=== PATIENT | male | born 1955 | race Caucasian/White ===

== ENCOUNTER 2016-10-31 14:12 | Emergency (ER) | payer OTHER ==
[~2016-10-31 14:12] MED LIST: COLACE100 MG PO; HYCET1 ML PO
--- NOTE | 2016-10-31 16:02 | DIAGNOSTIC IMAGING REPORT ---
PROCEDURE: CT ABDOMEN/PELVIS W/O CONTRAST INDICATION: Left flank pain, initial encounter TECHNIQUE: Noncontrast axial images were obtained of the entire abdomen and pelvis with sagittal and coronal reformations. COMPARISON: CT abdomen/pelvis 11/29/2015. FINDINGS: ABDOMEN: 6 x 2.5 mm left UVJ calculus with mild left hydroureteronephrosis and perinephric edema. Bilateral punctate nonobstructing renal calculi. Lung base are clear. Heart size is normal. Gallstones, largest 1 cm. 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 Liver, spleen and adrenal glands are normal. Mild atherosclerosis. PELVIS: Normal appendix.. Mildly enlarged prostate, 4.5 cm. No pelvic mass, inflammatory changes or free fluid. Mild degenerative changes of the spine. IMPRESSION: 1. 6 x 2.5 mm left UVJ calculus with mild left hydroureteronephrosis 2. Bilateral punctate nonobstructing renal calculi 3. 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 This may represent residual or recurrent mass versus pseudocyst. 4. Cholelithiasis 5. Results discussed with Jaida Browne All CT scans at this facility use dose modulation, iterative reconstruction, and/or weight-based dosing when appropriate to reduce radiation dose to as low as reasonably achievable.
--- NOTE | 2016-10-31 16:23 | ED ORDER SUMMARY ---
..... Patient: REINA ROSEN OrderSheet [facility] VisitID: [id number] [place] [address] 61y, M Registration Date/Time: 10/31/2016 ORDER SHEET Weight: 68.0 kg (stated) Allergies: NKDA GENERAL ORDERS: CT Abd/Pel wo Cont Urgent (14:36 10/31/2016 HBivens A.R.N.P.) (Ack 14:37 KHoerner) (15:03 EHassan R.N.) CBC w Diff Urgent (14:36 10/31/2016 HBivens A.R.N.P.) (Ack 14:37 KHoerner) (15:02 EHassan R.N.) CMP Urgent (14:36 10/31/2016 HBivens A.R.N.P.) (Ack 14:37 KHoerner) (15:02 EHassan R.N.) UA-Culture if indicated Urgent (14:36 10/31/2016 HBivens A.R.N.P.) (Ack 14:37 KHoerner) (14:45 Astrid R.N.) MEDICATION ORDERS: Hydrocodone-APAP PO 5/325 mg (NOW, HIGH ALERT MEDICATION) (16:33 10/31/2016 EHassan R.N. verbal order read back to HBivens A.R.N.P.) (16:37 EHassan R.N.) IV FLUIDS: IV NS : initial bolus 1000 mL (1000 mL/hr), then none - (NOW) (14:36 10/31/2016 HBivens A.R.N.P.) (Ack 14:45 Astrid R.N.) (15:13 EHassan R.N.) Zofran IV 4 mg (NOW) (14:36 10/31/2016 HBivens A.R.N.P.) (Ack 14:45 Astrid R.N.) (15:13 EHassan R.N.) Toradol IV 30 mg (NOW) (14:36 10/31/2016 HBivens A.R.N.P.) (Ack 14:45 Astrid R.N.) (15:13 Lizzeth Campbell.N.) IV Saline Lock (14:36 10/31/2016 Rambo A.R.N.P.) (Ack 14:45 Astrid Redman) (15:03 Lizzeth Campbell.N.) ORDER SHEET NOTES: [Electronically signed by Jaida BrowneNTerellPTerell (17:19 10/31/2016)] [Electronically signed by Ladi Church R.N. (22:40 10/31/2016)] [Electronically locked/signed by Ladi Church R.N. (22:40 10/31/2016)]
--- NOTE | 2016-10-31 16:23 | ED NURSING NOTES ---
Clinical Report - Nurses [facility] [place] [address] 10/31/2016 14:12 Patient: REINA ROSEN TRIAGE Triage time 14:34. Acuity: LEVEL 3. Chief Complaint: ABDOMINAL PAIN, NAUSEA and VOMITING. Alert. ANNIE COMA SCORE: [place] Coma Scale: 15- eyes open spontaneously (4); best verbal response- oriented x 4 (5); best motor response- obeys commands (6). --14:40 Savannah Michelle R.N. 14:34 10/31/16. BP: 134/80. HR: 88. RR: 18. O2 saturation: 98% on room air. Temp: 98.1 F (oral). Pain level now: 07/28. --14:40 Savannah Michelle R.N. Weight: 68 kg stated. Height/Length: 68 inches Per Patient. BMI: 22.8. --14:37 Savannah Michelle R.N. Medications None. --14:35 Savannah Michelle R.N. Medication/allergy information source: the patient's family. --14:40 Savannah Michelle R.N. Allergies NKDA. --14:35 Savannah Michelle R.N. History Arrived by private vehicle. Historian: patient and family. Accompanied by family. Primary physician (Nathan). Describes the quality as "pain". Relates the location as in the left flank area. SOCIAL HX: Never smoker. No alcohol use or drug use. FALL RISK ASSESSMENT: Fall risk assessment completed. No fall risk identified. FUNCTIONAL ASSESSMENT: Functional assessment performed: independent with the activities of daily living; deafness present. LEARNING NEEDS ASSESSMENT: (pt and are deaf). --14:40 Savannah Michelle R.N. PROBLEMS: Urinary Calculi. Cholelithiasis. Ureterolithiasis. Nephrolithiasis. --14:35 Savannah Michelle R.N. ADDITIONAL SURGERIES: Pancreatic cyst. --14:35 Miguel Angel, Savannah, R.N. Assessment GENERAL / NEURO / PSYCH: The patient is awake and alert, is oriented and cooperative and appears uncomfortable. He has good eye contact. RESPIRATORY: Respirations not labored. SKIN: Skin is warm and dry. --14:40 Savannah Michelle R.N. Interventions ID band on patient. To treatment room. --14:40 Savannah Michelle R.N. PHYSICAL ASSESSMENT 14:44 10/31/16. Ambulatory to room. Patient gowned. GENERAL / NEURO / PSYCH: Alert. Oriented X 4. Appears in no acute distress. RESPIRATORY: Respirations not labored. SKIN: Skin is warm and dry. --14:44 Savannah Michelle R.N. NURSING PROGRESS NOTES 14:44 10/31/16. Patient gowned. Head of bed elevated. Call light placed in reach. Side rails up x 1. Bed placed in lowest position. Brakes of bed on. --14:44 Savannah Michelle R.N. 14:45 10/31/16. :patient confirmed. Clean catch urine collected; sample sent to lab. Specimen labeled in the presence of the patient. --14:45 Savannah Michelle R.N. 15:03 10/31/2016 Site #1 started via IV in the right antecubital space with an 20g angiocath; one attempt. Blood drawn: rainbow set. Labeled in the presence of the patient and sent to the lab. --15:03 Ladi Church R.N. 15:08 10/31/2016 Toradol IVP 30 mg given over 30 second(s) via site #1. Allergies verified and confirmed 5 rights. IV patency established. IV site checked: no pain, redness, or swelling. IV flushed thoroughly pre- and post-medication administration. IVP given by RN. --15:13 Ladi Church R.N. 15:13 10/31/2016 Started bag #1 1000 mL IV Fluids IV NS (Saline); at 1000 mL/hr over 1 hour(s) via site #1 via IV pump. Allergies verified and confirmed 5 rights. IV patency established. IV site checked: no pain, redness, or swelling. IV flushed thoroughly pre- and post-medication administration. Completed per protocol. --15:13 Ladi Church R.N. 15:13 10/31/2016 Zofran (Ondansetron HCl) IVP 4 mg given over 2 minute(s) via site #1. Allergies verified and confirmed 5 rights. IV patency established. IV site checked: no pain, redness, or swelling. IV flushed thoroughly pre- and post-medication administration. IVP given by RN. --15:13 Ladi Church R.N. Patient returned from CT. (1513 PM). --15:13 Ladi Church R.N. 16:02 10/31/16. BP: 128/73 (regular adult cuff) taken on the left arm, via an automated monitor, while lying. HR: 91. RR: 15. O2 saturation: 100%. Pain level now: 09/25. --16:02 Ladi Church R.N. Reassurance given. Reassessment after fluids administered. He is calm and resting quietly. Overall patient status is the same- he states feels the same. GI / : The patient reports abdominal pain. Denies nausea, diarrhea or vomiting. Call light placed in reach. --16:02 Ladi Church R.N. 16:37 10/31/2016 Hydrocodone-APAP (Hydrocodone-Acetaminophen) PO 5/325 mg Tablets 1 tab given. Allergies verified, confirmed 5 rights and sedative warning given to the patient and patient's family. --16:37 Ladi Church R.N. DISPOSITION / DISCHARGE 16:46 10/31/2016 Toradol IVP Response: no adverse reaction pain is improving. Symptoms have improved the patient feels better. --17:11 Ladi Church R.N. 16:51 10/31/2016 Site #1 removed. Catheter intact. Manual pressure, pressure dressing, bandaid and bandage applied. --16:51 Ladi Church R.N. Condition at departure: improved and stable. The goals identified in the patient's plan of care were met. No learning barriers present. Discharge instructions provided and reviewed with the patient and spouse. Reviewed warnings (stone and straining all urine, as well as folllow-up with old surgeon due to new findings of cyst). Reviewed medication(s) side effects, precautions, dosing and course information. Prescription(s) given to the patient. Patient and spouse verbalized understanding. Written instructions provided in [place] (pt's are both deaf but able to communicate via pen and paper). No treatment instructions or referrals given to the patient. The patient was discharged by the nurse practitioner. He was discharged home and accompanied by spouse and parent. He left the Emergency Department ambulatory and via private vehicle. Patient driving. FALL RISK ASSESSMENT: Fall risk assessment completed. No fall risk identified. --17:10 Ladi Church R.N. 16:30 10/31/16. BP: 125/84. HR: 74. RR: 15. O2 saturation: 100% on room air. Temp: 98.3 F (oral). Pain level now: 12/25. --17:10 Ladi Church R.N. 17:00 10/31/2016 IV Fluids IV NS Discontinued: bag #1 infused upon discharge. Total amount infused: 1000 mL. IV patency established. IV site checked: no pain, redness, or swelling. IV flushed thoroughly. --17:11 Ladi Church R.N. 17:01 10/31/2016 Zofran IVP Response: no adverse reaction pain is improving. Symptoms have improved the patient feels better. --17:11 Ladi Church R.N. 17:07 10/31/2016 Hydrocodone-APAP PO Response: no adverse reaction pain is improving. Symptoms have improved the patient feels better. --17:12 Ladi Church R.N. Departure time: 1715 PM. --17:12 Ladi Church R.N. Locked/Released at 10/31/2016 22:40 by Ladi Church R.N.
--- NOTE | 2016-10-31 16:23 | ED ORDER SUMMARY ---
..... Patient: REINA ROSEN OrderSheet [facility] VisitID: [id number] [place] [address] 61y, M Registration Date/Time: 10/31/2016 ORDER SHEET Weight: 68.0 kg (stated) Allergies: NKDA GENERAL ORDERS: CT Abd/Pel wo Cont Urgent (14:36 10/31/2016 HBivens A.R.N.P.) (Ack 14:37 KHoerner) (15:03 EHassan R.N.) CBC w Diff Urgent (14:36 10/31/2016 HBivens A.R.N.P.) (Ack 14:37 KHoerner) (15:02 EHassan R.N.) CMP Urgent (14:36 10/31/2016 HBivens A.R.N.P.) (Ack 14:37 KHoerner) (15:02 EHassan R.N.) UA-Culture if indicated Urgent (14:36 10/31/2016 HBivens A.R.N.P.) (Ack 14:37 KHoerner) (14:45 Astrid R.N.) MEDICATION ORDERS: Hydrocodone-APAP PO 5/325 mg (NOW, HIGH ALERT MEDICATION) (16:33 10/31/2016 EHassan R.N. verbal order read back to HBivens A.R.N.P.) (16:37 EHassan R.N.) IV FLUIDS: IV NS : initial bolus 1000 mL (1000 mL/hr), then none - (NOW) (14:36 10/31/2016 HBivens A.R.N.P.) (Ack 14:45 Astrid R.N.) (15:13 EHassan R.N.) Zofran IV 4 mg (NOW) (14:36 10/31/2016 HBivens A.R.N.P.) (Ack 14:45 Astrid R.N.) (15:13 EHassan R.N.) Toradol IV 30 mg (NOW) (14:36 10/31/2016 HBivens A.R.N.P.) (Ack 14:45 Astrid R.N.) (15:13 Lizzeth Campbell.N.) IV Saline Lock (14:36 10/31/2016 Rambo A.R.N.P.) (Ack 14:45 Astrid Redman) (15:03 Lizzeth Campbell.N.) ORDER SHEET NOTES: [Electronically signed by Jaida BrowneNTerellPTerell (17:19 10/31/2016)] [Electronically signed by Ladi Church R.N. (22:40 10/31/2016)] [Electronically locked/signed by Ladi Church R.N. (22:40 10/31/2016)]
--- NOTE | 2016-10-31 16:23 | ED CLINICAL REPORT ---
Clinical Report - Physicians/Mid Levels [facility] [address] [place] [address] 10/31/2016 14:12 Patient: REINA ROSEN Time Seen: 1424; upon arrival, initial patient contact, initial documentation, patient care assumed. Arrived- By private vehicle. Historian- patient and spouse. HISTORY OF PRESENT ILLNESS Chief Complaint: ABDOMINAL PAIN and FLANK PAIN. This started yesterday and is still present. It was abrupt in onset. At its maximum, severity described as severe. When seen in the E.D., severity described as moderate. It is described as "pain" and it is described as located in the left abdomen and left lower quadrant and the left flank and radiating to the left lower quadrant of the abdomen. The patient has had nausea, loss of appetite and vomiting. No diarrhea. No additional abdominal pain. No recent travel. Similar symptoms previously: Once. ( when he had kidney stone last year). Recent medical care: Not recently seen/assessed. REVIEW OF SYSTEMS No constipation, black stools, hematemesis, difficulty with urination or pain with urination. No urinary frequency, bloody stools, fever, chest pain or difficulty breathing. Last bowel movement: today. The patient has had chills. All systems otherwise negative, except as recorded above. PAST HISTORY See nurses notes. PROBLEMS: Urinary Calculi. Cholelithiasis. Ureterolithiasis. Nephrolithiasis. --14:35 Savannah Michelle R.N. ADDITIONAL SURGERIES: Pancreatic cyst. --14:35 Savannah Michelle R.N. Hearing loss (Deaf). SOCIAL HISTORY Never smoker. No alcohol use or drug use. No recent travel. Is a local resident. He lives with spouse. FAMILY HISTORY Negative. ADDITIONAL NOTES The nursing notes have been reviewed with agreement regarding the chief complaint, HPI, ROS, PMH and patient medications and allergies. PHYSICAL EXAM Appearance: Alert. Oriented X3. No acute distress. Eyes: Pupils equal, round and reactive to light. Eyes normal inspection. Neck: Normal inspection. Neck supple. CVS: Normal heart rate and rhythm. Heart sounds normal. Pulses normal. Respiratory: No respiratory distress. Breath sounds normal. Chest nontender. Abdomen: Soft and nontender. Back: Normal inspection. Skin: Skin warm and dry. Normal skin color. No rash. Normal skin turgor. Extremities: Extremities exhibit normal ROM. No lower extremity edema. Neuro: Oriented X 3. No motor deficit. No sensory deficit. LABS, X-RAYS, AND EKG Abdominal CT: . IMPRESSION: 1. 6 x 2.5 mm left UVJ calculus with mild left hydroureteronephrosis 2. Bilateral punctate nonobstructing renal calculi 3. 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 This may represent residual or recurrent mass versus pseudocyst. 4. Cholelithiasis 5. Results discussed with Jaida Browne All CT scans at this facility use dose modulation, iterative reconstruction, and/or weight-based dosing when appropriate to reduce radiation dose to as low as reasonably achievable. Electronically Final signed by:Rk Adams MD 10/31/2016 4:01:59 PM. The study was interpreted by the radiologist and discussed with the radiologist. Interpretation time: 1600. Laboratory Tests: UA-Culture if indicated: (ALISTAIR: 10/31/2016 14:30) ( MsgRcvd 10/31/2016 15:00) Final results Test Result Flag Units (Reference) URINE COLOR YELLOW URINE APPEARANCE CLEAR URINE GLUCOSE NEGATIVE (NEGATIVE) URINE BILIRUBIN NEGATIVE (NEGATIVE) URINE KETONE 1+ (NEGATIVE) URINE SPECIFIC GRAVITY 1.025 (1.010-1.030) URINE PH 6.0 (5.0-8.0) URINE PROTEIN NEGATIVE (NEGATIVE) URINE UROBILINOGEN 0.2 EU/dL (0.2-1.0) URINE NITRITE NEGATIVE (NEGATIVE) URINE BLOOD NEGATIVE (NEGATIVE) URINE LEUK ESTERASE NEGATIVE (NEGATIVE) URINE RBC 0-1 rbc/hpf (0-1) URINE WBC 0-1 wbc/hpf (0-1) URINE EPITHELIAL CELLS RARE EPI/hpf (0-5) URINE BACTERIA NONE SEEN (NONE SEEN) URINE COMMENT CULT NOT INDICATED 2+ MUCUSURINE CULTURES ARE SET-UP BASED ON THE FOLLOWING CRITERIA:POSITIVE NITRITEPOSITIVE LEUKOCYTE ESTERASEGREATER THAN 10 WHITE BLOOD CELLSMODERATE (2+) OR GREATER BACTERIA CBC w Diff: (ALISTAIR: 10/31/2016 15:00) ( MsgRcvd 10/31/2016 15:15) Final results Test Result Flag Units (Reference) WHITE BLOOD COUNT 9.7 K/uL (4.5-11.5) RED BLOOD COUNT 4.79 M/uL (4.50-5.90) HEMOGLOBIN 15.1 gm/dL (13.5-17.5) HEMATOCRIT 44.6 % (41.0-53.0) MEAN CELL VOLUME 93 fL (80-100) MEAN CORPUSCULAR HGB 32 pg (26-34) MEAN CORPUSCULAR HGB CONC 34 g/dL (31-37) RED CELL DISTRIBUTION WIDTH 13.6 % (11.6-14.8) PLATELET COUNT 174 K/uL (150-400) NEUTROPHIL % 91.6 H % (50-75) LYMPH % 5.8 L % (25-40) MONO % 2.5 L % (3-14) EOSINOPHIL % 0 % (0-4) BASOPHIL % 0.1 % (0-2) CMP: (ALISTAIR: 10/31/2016 15:00) ( MsgRcvd 10/31/2016 15:54) Final results Test Result Flag Units (Reference) GLUCOSE 123 H mg/dL (70-110) BUN 23 H mg/dL (7-18) CREATININE 1.3 mg/dL (0.6-1.3) Estimated GFR >60 mL/min Estimated GFR- >60 mL/min Note: Persistent reduction over 3 months in eGFR<60 mL/min/1.73 m2 defines CKD. Patients with eGFR values>=60 mL/min/1.73 m2 may also have CKD if evidence ofpersistent proteinuria. Additional information may be foundat www.kidney.org. SODIUM 142 mmol/L (136-145) POTASSIUM 4.6 mmol/L (3.5-5.1) SPECIMEN MODERATELY HEMOLYZEDREDRAWN SPECIMEN CHLORIDE 105 mmol/L (98-107) CARBON DIOXIDE 25 mmol/L (21-32) CALCIUM 8.5 mg/dL (8.5-10.1) TOTAL PROTEIN 7.1 g/dL (6.4-8.2) ALBUMIN 3.6 g/dL (3.3-5.0) BILIRUBIN, TOTAL 3.3 H mg/dL (0.0-1.0) ALKALINE PHOSPHATASE 99 U/L (46-116) AST (SGOT) 43 H U/L (15-37) SPECIMEN MODERATELY HEMOLYZEDREDRAWN SPECIMEN ALT (SGPT) 59 U/L (12-78) . PROGRESS AND PROCEDURES Patient counseled in person regarding the patient's stable condition, test results and diagnosis. 1610. Differential Diagnosis: I considered gastritis, gastroenteritis, peptic ulcer disease, gastroesophageal reflux disease, mesenteric lymphadenitis, diverticulitis, urinary tract infection, ureterolithiasis and urinary obstruction as a possible cause of abdominal pain in this patient. This is a partial list of diagnoses considered. Above considerations are based on history, physical exam, reassessment, laboratory data and other information. Differential diagnosis was discussed with patient and patient's spouse. Disposition: Discharged home in good and improved condition (16:23). Condition: good and stable. CLINICAL IMPRESSION Ureterolithiasis (single stone) in the left ureter with renal colic and hydronephrosis. No acute pyelonephritis, urinary tract infection or hematuria. INSTRUCTIONS Drink plenty of fluids for the next 24 hours until better. Warnings: Further evaluation is necessary in order to conduct further tests (2.4 cyst seen on pancreas on today's CT). It is very important to follow up with a physician. GENERAL WARNINGS: Return or contact your physician immediately if your condition worsens or changes unexpectedly, if not improving as expected, or if other problems arise. SPECIFICALLY, return if you develop pain in the abdomen or pelvis, fever, the inability to keep fluids down, blood in vomitus, blood in diarrhea, fainting or lightheadedness. Prescription Medications: Hydrocodone/APAP 5mg/325mg: take 1 to 2 orally every 6 hours as needed for pain. Dispense fifteen (15). No refills. Zofran 4 mg: Take 1 orally every six hours as needed for nausea/vomiting. Dispense ten (10). No refills. Substitution is permissible. Toradol 10 mg tablets: Take 1 tablet orally every 6 hours as needed. Dispense fifteen (15). No refills. Substitution is permissible. Flomax 0.4 mg: take 1 orally every 24 hours. Dispense fifteen (15). No refills. Substitution is permissible. Follow-up: Follow up with your doctor in about two days even if well. Call for an appointment. Summary of care provided to patient. Understanding of the discharge instructions verbalized by patient. (Electronically signed by Jaida Browne A.R.N.P. 10/31/2016 17:19)
--- NOTE | 2016-10-31 22:40 | ED MED RECONCILIATION SUMMARY ---
Patient: REINA ROSEN Medication Reconciliation Report [facility] VisitID: [id number] [address] [place] [address] 61y, M Registration Date/Time: 10/31/2016 Weight: 68.0 kg Height/Length: 68 in. BMI: 22.8 ALLERGIES: NKDA The patient's Home Medications are listed below: NONE. The source(s) of the original Home Medication information: patient's family member The following Medications were given to the patient in the Emergency Department: IV NS IV Fluids bolus 0, then 1000 mL/hr, administered: 10/31/2016 3:13:00 PM Zofran [IVP] IVP 4 mg, administered: 10/31/2016 3:13:00 PM Toradol [IVP] IVP 30 mg, administered: 10/31/2016 3:08:00 PM Hydrocodone-APAP [PO] PO 1 tab, administered: 10/31/2016 4:37:00 PM The following Medications were prescribed to the patient: Hydrocodone/APAP 5mg/325mg: take 1 to 2 orally every 6 hours as needed for pain. Dispense fifteen (15). No refills. -- Jaida Browne, A.R.N.P. Zofran 4 mg: Take 1 orally every six hours as needed for nausea/vomiting. Dispense ten (10). No refills. Substitution is permissible. -- Jaida Browne, A.R.N.P. Toradol 10 mg tablets: Take 1 tablet orally every 6 hours as needed. Dispense fifteen (15). No refills. Substitution is permissible. -- Jaida Browne, A.R.N.P. Flomax 0.4 mg: take 1 orally every 24 hours. Dispense fifteen (15). No refills. Substitution is permissible. -- Jaida Browne, A.R.N.P.
--- NOTE | 2016-10-31 22:40 | ED MED RECONCILIATION SUMMARY ---
Patient: REINA ROSEN Medication Reconciliation Report [facility] VisitID: [id number] [address] [place] [address] 61y, M Registration Date/Time: 10/31/2016 Weight: 68.0 kg Height/Length: 68 in. BMI: 22.8 ALLERGIES: NKDA The patient's Home Medications are listed below: NONE. The source(s) of the original Home Medication information: patient's family member The following Medications were given to the patient in the Emergency Department: IV NS IV Fluids bolus 0, then 1000 mL/hr, administered: 10/31/2016 3:13:00 PM Zofran [IVP] IVP 4 mg, administered: 10/31/2016 3:13:00 PM Toradol [IVP] IVP 30 mg, administered: 10/31/2016 3:08:00 PM Hydrocodone-APAP [PO] PO 1 tab, administered: 10/31/2016 4:37:00 PM The following Medications were prescribed to the patient: Hydrocodone/APAP 5mg/325mg: take 1 to 2 orally every 6 hours as needed for pain. Dispense fifteen (15). No refills. -- Jaida Browne, A.R.N.P. Zofran 4 mg: Take 1 orally every six hours as needed for nausea/vomiting. Dispense ten (10). No refills. Substitution is permissible. -- Jaida Browne, A.R.N.P. Toradol 10 mg tablets: Take 1 tablet orally every 6 hours as needed. Dispense fifteen (15). No refills. Substitution is permissible. -- Jaida Browne, A.R.N.P. Flomax 0.4 mg: take 1 orally every 24 hours. Dispense fifteen (15). No refills. Substitution is permissible. -- Jaida Browne, A.R.N.P.
--- NOTE | 2016-10-31 22:40 | ED MAR SUMMARY ---
..... Medication Administration Record [facility] [address] [place] [address] Patient: REINA ROSEN Visit ID: [id number] 61y, M Weight: 68.0 kg Height/Length: 68 in BMI: 22.8 ALLERGIES: NKDA Given 15:08 10/31/2016 Ladi Church R.N. Medication Administered: TORADOL [IVP], Dose: 30 mg IVP over 30 second(s), Site: #1 right AC. Medication Ordered: Toradol IV 30 mg (NOW). Start 15:13 10/31/2016 Ladi Church R.N., Stop 17:00 10/31/2016 Ladi Church R.N. Medication Administered: IV NS (SALINE), Dose: IV Fluids over 1 hour(s), Rate: 1000 mL/hr, Dispensed: 1000 mL bag, Site: #1 right AC. Medication Ordered: IV NS : initial bolus 1000 mL (1000 mL/hr), then none - (NOW). Given 15:13 10/31/2016 Ladi Church R.N. Medication Administered: ZOFRAN [IVP] (ONDANSETRON HCL), Dose: 4 mg IVP over 2 minute(s), Site: #1 right AC. Medication Ordered: Zofran IV 4 mg (NOW). Given 16:37 10/31/2016 Ladi Church R.N. Medication Administered: HYDROCODONE-APAP [PO] (HYDROCODONE-ACETAMINOPHEN), Dose: 1 tab 5/325 mg Tablets PO. Medication Ordered: Hydrocodone-APAP PO 5/325 mg (NOW, HIGH ALERT MEDICATION).
--- NOTE | 2016-10-31 22:40 | ED DISCHARGE INSTRUCTIONS ---
Patient: REINA ROSEN General Instructions [facility] VisitID: [id number] [address] [place] [address] 61y, M Registration Date/Time: 10/31/2016 Ureterolithiasis (single stone) in the left ureter with renal colic and hydronephrosis. No acute pyelonephritis, urinary tract infection or hematuria. INSTRUCTIONS Drink plenty of fluids for the next 24 hours until better. Warnings: Further evaluation is necessary in order to conduct further tests (2.4 cyst seen on pancreas on today's CT). It is very important to follow up with a physician. GENERAL WARNINGS: Return or contact your physician immediately if your condition worsens or changes unexpectedly, if not improving as expected, or if other problems arise. SPECIFICALLY, return if you develop pain in the abdomen or pelvis, fever, the inability to keep fluids down, blood in vomitus, blood in diarrhea, fainting or lightheadedness. Prescription Medications: Hydrocodone/APAP 5mg/325mg: take 1 to 2 orally every 6 hours as needed for pain. Dispense fifteen (15). No refills. Zofran 4 mg: Take 1 orally every six hours as needed for nausea/vomiting. Dispense ten (10). No refills. Substitution is permissible. Toradol 10 mg tablets: Take 1 tablet orally every 6 hours as needed. Dispense fifteen (15). No refills. Substitution is permissible. Flomax 0.4 mg: take 1 orally every 24 hours. Dispense fifteen (15). No refills. Substitution is permissible. Follow-up: Follow up with your doctor in about two days even if well. Call for an appointment. Summary of care provided to patient. Understanding of the discharge instructions verbalized by patient. ADDITIONAL INFORMATION Kidney Stone (W/ Colic) The sharp cramping pain and nausea/vomiting that you have is due to a small stone which has formed in the kidney and is now passing down a narrow tube (ureter) on its way to your bladder. Once it reaches your bladder, the pain will stop. The stone may pass in your urine stream in one piece. [The size may be 1/16" to 1/4" (1-6mm)]. Or, the stone may also break up into bee fragments which you may not even notice. Once you have had a kidney stone, you are at risk for developing another one in the future. Home Care: Drink plenty of fluids (at least 8 to 10 glasses of water a day). Most stones will pass on their own, but may take from a few hours to a few days. Sometimes the stone is too large to pass by itself and special methods will have to be used to remove the stone. Each time you urinate, do so in a jar. Pour the urine from the jar through the strainer and into the toilet. Continue doing this until 24 hours after your pain stops. By then, if there was a kidney stone, it should pass from your bladder. Some stones dissolve into sand-like particles and pass right through the strainer. In that case, you wont ever see a stone. Save any stone that you find in the strainer and bring it to your doctor for analysis. It may be possible to prevent certain types of stones from forming. Therefore, it is important to know what kind of stone you have. Try to stay as active as possible since this will help the stone pass. Do not stay in bed unless your pain prevents you from getting up. You may notice a red, pink or brown color to your urine. This is normal while passing a kidney stone. Follow Up with your doctor or return to this facility if the pain lasts more than 48 hours. Get Prompt Medical Attention if any of the following occur: Pain that is not controlled by the medicine given Repeated vomiting or unable to keep down fluids Weakness, dizziness or fainting Fever of 100.4F (38C) or higher, or as directed by your healthcare provider Passage of solid red or brown urine (can't see through it) or urine with lots of blood clots Unable to pass urine for 8 hours and increasing bladder pressure Hydrocodone Bitartrate, Acetaminophen Oral tablet What is this medicine? ACETAMINOPHEN; HYDROCODONE (a set a SYLVIE bipin fen; geri droe KOE done) is a pain reliever. It is used to treat mild to moderate pain. How should I use this medicine? Take this medicine by mouth. Swallow it with a full glass of water. Follow the directions on the prescription label. If the medicine upsets your stomach, take the medicine with food or milk. Do not take more than you are told to take. Talk to your director security risk management regarding the use of this medicine in children. This medicine is not approved for use in children. What side effects may I notice from receiving this medicine? Side effects that you should report to your doctor or health lawn care specialist as soon as possible: allergic reactions like skin rash, itching or hives, swelling of the face, lips, or tongue breathing problems confusion feeling faint or lightheaded, falls stomach pain yellowing of the eyes or skin Side effects that usually do not require medical attention (report to your doctor or health lawn care specialist if they continue or are bothersome): nausea, vomiting stomach upset What may interact with this medicine? alcohol antihistamines isoniazid medicines for depression, anxiety, or psychotic disturbances medicines for sleep muscle relaxants naltrexone narcotic medicines (opiates) for pain phenobarbital ritonavir tramadol What if I miss a dose? If you miss a dose, take it as soon as you can. If it is almost time for your next dose, take only that dose. Do not take double or extra doses. Where should I keep my medicine? Keep out of the reach of children. This medicine can be abused. Keep your medicine in a safe place to protect it from theft. Do not share this medicine with anyone. Selling or giving away this medicine is dangerous and against the law. Store at room temperature between 15 and 30 degrees C (59 and 86 degrees F). Protect from light. Keep container tightly closed. Throw away any unused medicine after the expiration date. Discard unused medicine and used packaging carefully. Pets and children can be harmed if they find used or lost packages. What should I tell my health care provider before I take this medicine? They need to know if you have any of these conditions: brain tumor Crohn's disease, inflammatory bowel disease, or ulcerative colitis drink more than 3 alcohol-containing drinks per day drug abuse or addiction head injury heart or circulation problems kidney disease or problems going to the bathroom liver disease lung disease, asthma, or breathing problems an unusual or allergic reaction to acetaminophen, hydrocodone, other opioid analgesics, other medicines, foods, dyes, or preservatives or trying to get breast-feeding What should I watch for while using this medicine? Tell your doctor or health lawn care specialist if your pain does not go away, if it gets worse, or if you have new or a different type of pain. You may develop tolerance to the medicine. Tolerance means that you will need a higher dose of the medicine for pain relief. Tolerance is normal and is expected if you take the medicine for a long time. Do not suddenly stop taking your medicine because you may develop a severe reaction. Your body becomes used to the medicine. This does NOT mean you are addicted. Addiction is a behavior related to getting and using a drug for a non-medical reason. If you have pain, you have a medical reason to take pain medicine. Your doctor will tell you how much medicine to take. If your doctor wants you to stop the medicine, the dose will be slowly lowered over time to avoid any side effects. You may get drowsy or dizzy when you first start taking the medicine or change doses. Do not drive, use machinery, or do anything that may be dangerous until you know how the medicine affects you. Stand or sit up slowly. There are different types of narcotic medicines (opiates) for pain. If you take more than one type at the same time, you may have more side effects. Give your health care provider a list of all medicines you use. Your doctor will tell you how much medicine to take. Do not take more medicine than directed. Call emergency for help if you have problems breathing. The medicine will cause constipation. Try to have a bowel movement at least every 2 to 3 days. If you do not have a bowel movement for 3 days, call your doctor or health lawn care specialist. Too much acetaminophen can be very dangerous. Do not take Tylenol (acetaminophen) or medicines that contain acetaminophen with this medicine. Many non-prescription medicines contain acetaminophen. Always read the labels carefully. Ondansetron Oral disintegrating tablet What is this medicine? ONDANSETRON (on BEBETO se ajay) is used to treat nausea and vomiting caused by chemotherapy. It is also used to prevent or treat nausea and vomiting after surgery. How should I use this medicine? These tablets are made to dissolve in the mouth. Do not try to push the tablet through the foil backing. With dry hands, peel away the foil backing and gently remove the tablet. Place the tablet in the mouth and allow it to dissolve, then swallow. While you may take these tablets with water, it is not necessary to do so. Talk to your director security risk management regarding the use of this medicine in children. Special care may be needed. What side effects may I notice from receiving this medicine? Side effects that you should report to your doctor or health lawn care specialist as soon as possible: allergic reactions like skin rash, itching or hives, swelling of the face, lips, or tongue breathing problems dizziness fast or irregular heartbeat feeling faint or lightheaded, falls fever and chills swelling of the hands and feet tightness in the chest Side effects that usually do not require medical attention (report to your doctor or health lawn care specialist if they continue or are bothersome): constipation or diarrhea headache What may interact with this medicine? Do not take this medicine with any of the following medications: -apomorphine -cisapride -dofetilide -dronedarone -pimozide -thioridazine -ziprasidone This medicine may also interact with the following medications: -carbamazepine -phenytoin -rifampicin -tramadol -other medicines that prolong the QT interval (cause an abnormal heart rhythm) What if I miss a dose? If you miss a dose, take it as soon as you can. If it is almost time for your next dose, take only that dose. Do not take double or extra doses. Where should I keep my medicine? Keep out of the reach of children. Store between 2 and 30 degrees C (36 and 86 degrees F). Throw away any unused medicine after the expiration date. What should I tell my health care provider before I take this medicine? They need to know if you have any of these conditions: heart disease history of irregular heartbeat liver disease low levels of magnesium or potassium in the blood an unusual or allergic reaction to ondansetron, granisetron, other medicines, foods, dyes, or preservatives or trying to get breast-feeding What should I watch for while using this medicine? Check with your doctor or health lawn care specialist as soon as you can if you have any sign of an allergic reaction. Ketorolac Tromethamine Oral tablet What is this medicine? KETOROLAC (asa toe ROLE ak) is a non-steroidal anti-inflammatory drug (NSAID). It is used for a short while to treat moderate to severe pain, including pain after surgery. It should not be used for more than 5 days. How should I use this medicine? Take this medicine by mouth with a full glass of water. Follow the directions on the prescription label. Take your medicine at regular intervals. Do not take your medicine more often than directed. Do not take more than the recommended dose. A special MedGuide will be given to you by the pharmacist with each prescription and refill. Be sure to read this information carefully each time. Talk to your director security risk management regarding the use of this medicine in children. While this drug may be prescribed for children as young as 16 years of age for selected conditions, precautions do apply. Patients over 65 years old may have a stronger reaction and need a smaller dose. What side effects may I notice from receiving this medicine? Side effects that you should report to your doctor or health lawn care specialist as soon as possible: allergic reactions like skin rash, itching or hives, swelling of the face, lips, or tongue black or tarry stools breathing problems changes in vision chest pain high blood pressure nausea or vomiting redness, blistering, peeling or loosening of the skin, including inside the mouth severe abdominal pain slurred speech or weakness on one side of the body unexplained weight gain or swelling unusual bleeding or bruising unusually weak or tired yellowing of eyes or skin Side effects that usually do not require medical attention (report to your doctor or health lawn care specialist if they continue or are bothersome): diarrhea dizziness headache heartburn What may interact with this medicine? Do not take this medicine with any of the following medications: aspirin and aspirin-like medicines cidofovir methotrexate NSAIDs, medicines for pain and inflammation, like ibuprofen or naproxen pemetrexed probenecid This medicine may also interact with the following medications: alcohol alendronate alprazolam carbamazepine cyclosporine diuretics flavocoxid fluoxetine ginkgo lithium medicines for high blood pressure like enalapril medicines that affect platelets like pentoxifylline medicines that treat or prevent blood clots like heparin, warfarin muscle relaxants phenytoin steroid medicines like prednisone or cortisone thiothixene What if I miss a dose? If you miss a dose, take it as soon as you can. If it is almost time for your next dose, take only that dose. Do not take double or extra doses. Where should I keep my medicine? Keep out of the reach of children. Store at room temperature between 20 and 25 degrees C (68 and 77 degrees F). Throw away any unused medicine after the expiration date. What should I tell my health care provider before I take this medicine? They need to know if you have any of these conditions: asthma bleeding problems like hemophilia cigarette smoker drink more than 3 alcohol containing drinks a day heart disease or circulation problems such as heart failure or leg edema (fluid retention) high blood pressure kidney disease liver disease stomach bleeding or ulcers an unusual or allergic reaction to ketorolac, aspirin, other NSAIDs, other medicines, foods, dyes, or preservatives or trying to get breast-feeding What should I watch for while using this medicine? Tell your doctor or health lawn care specialist if your pain does not get better. Talk to your doctor before taking another medicine for pain. Do not treat yourself. This medicine does not prevent heart attack or stroke. In fact, this medicine may increase the chance of a heart attack or stroke. The chance may increase with longer use of this medicine and in people who have heart disease. If you take aspirin to prevent heart attack or stroke, talk with your doctor or health lawn care specialist. Do not take medicines such as ibuprofen and naproxen with this medicine. Side effects such as stomach upset, nausea, or ulcers may be more likely to occur. Many medicines available without a prescription should not be taken with this medicine. This medicine can cause ulcers and bleeding in the stomach and intestines at any time during treatment. Do not smoke cigarettes or drink alcohol. These increase irritation to your stomach and can make it more susceptible to damage from this medicine. Ulcers and bleeding can happen without warning symptoms and can cause . You may get drowsy or dizzy. Do not drive, use machinery, or do anything that needs mental alertness until you know how this medicine affects you. Do not stand or sit up quickly, especially if you are an older patient. This reduces the risk of dizzy or fainting spells. This medicine can cause you to bleed more easily. Try to avoid damage to your teeth and gums when you brush or floss your teeth. You have been given the following additional information: Kidney Stone W/ Colic Hydrocodone Bitartrate, Acetaminophen Oral tablet Ondansetron Oral disintegrating tablet Ketorolac Tromethamine Oral tablet (Electronically signed by Jaida Browne A.R.NKat 10/31/2016 17:19)
--- NOTE | 2016-10-31 22:40 | ED MAR SUMMARY ---
..... Medication Administration Record [facility] [address] [place] [address] Patient: REINA ROSEN Visit ID: [id number] 61y, M Weight: 68.0 kg Height/Length: 68 in BMI: 22.8 ALLERGIES: NKDA Given 15:08 10/31/2016 Ladi Church R.N. Medication Administered: TORADOL [IVP], Dose: 30 mg IVP over 30 second(s), Site: #1 right AC. Medication Ordered: Toradol IV 30 mg (NOW). Start 15:13 10/31/2016 Ladi Church R.N., Stop 17:00 10/31/2016 Ladi Church R.N. Medication Administered: IV NS (SALINE), Dose: IV Fluids over 1 hour(s), Rate: 1000 mL/hr, Dispensed: 1000 mL bag, Site: #1 right AC. Medication Ordered: IV NS : initial bolus 1000 mL (1000 mL/hr), then none - (NOW). Given 15:13 10/31/2016 Ladi Church R.N. Medication Administered: ZOFRAN [IVP] (ONDANSETRON HCL), Dose: 4 mg IVP over 2 minute(s), Site: #1 right AC. Medication Ordered: Zofran IV 4 mg (NOW). Given 16:37 10/31/2016 Ladi Church R.N. Medication Administered: HYDROCODONE-APAP [PO] (HYDROCODONE-ACETAMINOPHEN), Dose: 1 tab 5/325 mg Tablets PO. Medication Ordered: Hydrocodone-APAP PO 5/325 mg (NOW, HIGH ALERT MEDICATION).
== END 2016-10-31 17:20 | disposition home or self-care (01) ==
LOC: ED SRH 14:12
DX: N20.1 Calculus of ureter (principal); N23 Unspecified renal colic; N13.30 Unspecified hydronephrosis
CPT/HCPCS: 90004; 90100; 95059